=== PATIENT | female | born 1930 | race Caucasian/White ===

== ENCOUNTER 2016-12-03 10:44 | Emergency (ER) | payer OTHER, MEDICARE ==
[~2016-12-03] VITALS: Ht 163.8 cm; Wt 72.6 kg
[~2016-12-03 10:44] MED LIST: ALDACTONE 25 MG25 MG PO; ATORVASTATIN CA20 M1 PO; ATORVASTATIN CA20 MG PO; BRILINTA90 MG PO; CHILDREN'S ASPI81 M1 PO; CLONAZEPAM0.5 M2 PO; DEXILANT60 MG PO; DULCOLAX5 M1 PO; HEPARIN 2525000 UNI1 IV; HYOSCYAMINE0.125 MG PO; LINZESS145 MC1 PO; MELATONIN3 M4 PO; METOPROLOL SUCC50 M2 PO; MIRALAX17 GM PO; MYRBETRIQ25 M1 PO; NEXIUM40 M1 PO; NITROGLYCERIN0.4 MG SL; VITAB121000; VITAMIN D1000 IU PO; VITAMIN D31000 UNI2 PO
--- NOTE | 2016-12-03 10:49 | ED UPPER/LOWER EXTREMITY COMPL ---
History of Present Illness General Chief Complaint: Hip Injury Stated Complaint: BIBA L HIP PAIN Source: patient Exam Limitations: no limitations Vital Signs & Intake/Output Vital Signs & Intake/Output Vital Signs Date Time Temp Pulse Resp B/P Pulse O2 O2 Flow FiO2 Ox Delivery Rate 12/03 1455 97.1 79 18 135/71 96 12/03 1045 97.1 71 18 140/63 96 Allergies Coded Allergies: onion (Mild, MILD GI UPSET 12/03/16) codeine (Intermediate, NAUSEA 12/03/16) Reconcile Medications Aspirin (Children's Aspirin) 81 MG TAB HEART HEALTH (Reported) Atorvastatin Calcium 20 MG TABLET 1 TAB PO DAILY CHOLESTEROL (Reported) Bisacodyl (Dulcolax) 5 MG ECT 1 TAB PO DAILY PRN CONSTIPATION (Reported) Cholecalciferol (Vitamin D3) 1,000 IU TAB 1 TAB PO DAILY BLOOD HEALTH ( Reported) Clonazepam 0.5 MG TABLET 0.5 TAB PO BID ANXIETY (Reported) Esomeprazole (Nexium) 40 MG CAPSULE.DR 1 CAP PO DAILY GERD (Reported) Hyoscyamine Sulfate 0.125 MG TAB 1 TAB PO Q4H PRN CRAMPING (Reported) Linaclotide (Linzess) 145 MCG CAP 1 CAP PO DAILY GI (Reported) Metoprolol Succinate (Metoprolol Succinate XL) [address] TAB PO DAILY HEART (Reported) Mirabegron (Myrbetriq) [address] TAB PO BID BLADDER (Reported) Naproxen 375 MG TABLET 1 TAB PO BID PRN PAIN with food Nitroglycerin 0.4 MG TAB 1 TAB SL AD PRN ANGINA (Reported) Triage Nurses Notes Reviewed? yes Onset: Gradual Duration: constant Timing: single episode today Severity: moderate Severity Numbers: 5 Method of Injury: direct blow, fall HPI: PT IS A 85-year-old female with a past medical history of hypertension, hyperlipidemia, coronary artery disease status post stent placement in August 2015 who presents to emergency room stating that yesterday patient was in her normal state of health and was sitting in a recliner patient stood up and began walking in her living room where she misstepped and fell striking the left lateral aspect of her body to the grounds and the recliner. Patient denies any preceding episode of lightheaded sensation or dizziness. Patient denies losing consciousness. Patient lives in assisted care living facility in which [facility] had called EMS which EMS arrived on scene and patient was advised to ambulate with her walker as she does every day use this where she walked without pain and had steady gait. Patient then declined EMS services patient woke up at 3 AM last night and needed to use the restroom and which during this ambulation episode with a walker she noted Pain to her left hip down her leg. Patient states that she was able to tolerate ambulation and slept again in the recliner and today she still complained of the same pain to left hip and down the leg. (ELLI GRANADO) Past History Medical History Any Pertinent Medical History? see below for history Neurological: NONE EENT: hearing loss, BILATERAL HEARING AIDS Cardiovascular: angina, hypertension, hyperlipidemia, NSTEMI, CARDIAC STENTS Respiratory: NONE Gastrointestinal: constipation, GERD, irritable bowel syndrome Hepatic: NONE Renal: urinary incontinence Musculoskeletal: sciatica, ARTHRITIS COMPRESSION FRACTURES LEFT HIP ORIF Psychiatric: anxiety Endocrine: NONE Blood Disorders: B12 DEFICIENCY Cancer(s): NONE SENIOR STRATEGY MANAGER/Reproductive: Incontinence History of MRSA: No History of VRE: No History of CDIFF: No Surgical History Surgical History: cholecystectomy, ptca, aug [address] [facility] Psychosocial History Who do you live with Spouse What is your primary language Maltese Family History Family History, If Any: MOTHER maternal aunt FH: breast cancer Relation not specified for: FH: HTN (hypertension) Hx Contributory? No (ELLI GRANADO) Review of Systems Review of Systems Constitutional: Reports: see HPI, malaise, weakness. EENTM: Reports: no symptoms. Respiratory: Reports: no symptoms. Cardiovascular: Reports: no symptoms. Gastrointestinal/Abdominal: Reports: no symptoms. Genitourinary: Reports: no symptoms. Musculoskeletal: Reports: see HPI, joint pain, muscle pain. Skin: Reports: no symptoms. Neurological/Psychological: Reports: no symptoms. Hematologic/Endocrine: Reports: no symptoms. Immunological: Reports: no symptoms. All Other Systems: Reviewed and Negative (ELLI GRANADO) Physical Exam Physical Exam General Appearance: no apparent distress, alert, comfortable Neurologic/Tendon: normal sensation, normal motor functions, normal tendon functions, responds to pain, no evidence tendon injury, no pulse deficit Comments: Well-developed well-nourished person in no acute distress HEENT: Normal EENT exam, extraocular motion intact, no nystagmus. Pupils equally round and reactive to light and accommodation. Nose is atraumatic. External auditory canal and Tympanic membranes clear. Pharynx normal. No swelling or edema. Neck: Supple, no lymphadenopathy, normal range of motion without pain or tenderness Full active range of motion noted, no central spinous tenderness noted Back: Generalized low back point tenderness noted, normal inspection Cardiovascular: Regular rate and rhythms no murmurs rubs or gallops, normal JVP Respiratory: Chest nontender. No respiratory distress.breath sounds clear to auscultation bilaterally Abdomen: Soft, nontender nondistended, no appreciable organomegaly. Normal bowel sounds. No ascites Extremity: No edema, no calf tenderness to palpation, normal and equal pulses. Left hip generalized point tenderness noted decreased active range motion noted with pain to hip flexion Left knee joint was point tenderness noted, full active range of motion noted with flexion extension Left ankle talus point tenderness noted full active range of motion noted with plantar flexion dorsiflexion Left lower extremity dermatomes intact pedal pulse +2 Neuro: Alert oriented x3, motor sensory normal, cranial nerves II through XII grossly intact. Skin: No appreciable rash on exposed skin, skin is warm and dry. Psych: Mood and affect is normal, memory and judgment is normal. (JONATHAN DUNHAM,ELLI) Progress Differential Diagnosis: arterial insufficiency, compartment syndrome, contusion, dislocation, DVT, fracture, gout, septic arthritis, sprain, tendon injury, PNEUMOTHORAX, RIB FRACTURE, MYOCARDIAL INFARCTION, CARDIAC CONTUSION, SPLEEN LACERATION, PANCREATITIS, APPENDICITIS, aaa, AORTIC DISSECTION, pe Plan of Care: Orders Procedure Date/time Status CT PELVIS WO IV CONTRAST 12/[address] LUMB SPINE WO IV CONTRAST 12/03 1246 Active Patient currently is in no apparent distress. Patient will be image to wear patient's symptoms of pain are on exam. Patient was initially given Naprosyn Patient had no concerns of abdominal pain on exam\ CT scan was unremarkable for acute fracture or hardware is in place Patient was then evaluated on ambulation she had normal steady gait with mild pain noted by patient to the left lower extremity however gait was stable with a walker Case management evaluated patient will provide home physical therapy to patient' s house. Discussed patient with Dr. HAWK who agrees with disposition plan Patient was strongly advised to follow up with primary care doctor and orthopedic doctor if symptoms still continue in 2 days and she will comply. I strongly advised patient to continue using her walker and she will comply for fall prevention (ELLI GRANADO) Diagnostic Imaging: Viewed by Me: CT Scan. Radiology Impression: no acute abnormality, no fracture Initial ED EKG: SINUS RHYTHM NOTED AT 102 BPM WITH VENTRICULAR BIGEMINY NOTED Comments: PATIENT: Sabas DWYER PRESENT AGE: 85 PATIENT ACCOUNT NO: [id number] : 29 LOCATION: [facility] ORDERING PHYSICIAN: ELLI DUNHAM SERVICE DATE: 12/03/16 EXAM TYPE: CAT - CT PELVIS WO IV CONTRAST EXAMINATION: CT PELVIS WITHOUT CONTRAST CLINICAL INFORMATION: Left hip and leg pain status post fall. COMPARISON: None. TECHNIQUE: Helical scanning was performed with submillimeter collimation through the pelvis. Sagittal and coronal multiplanar 2-D reconstructions were obtained. DLP: 913 mGy-cm. FINDINGS: There is diffuse osteopenia of the included osseous structures with postoperative changes in the left hip consistent with previous total hip arthroplasty with moderate hypertrophic heterotopic bone formation involving the intertrochanteric region greatest superiorly. There is diffuse joint space narrowing in the right hip with large marginal osteophytes identified. There are moderate degenerative changes at the lumbosacral junction, please see separately dictated CT lumbar spine for further information. Soft tissue imaging through the pelvis demonstrates extensive distal left and sigmoid colon diverticulosis without evidence of acute diverticulitis. The uterus and adnexa are unremarkable in appearance. There is no intraperitoneal free fluid. No suspicious masses are seen. IMPRESSION: 1. Osteopenia, no acute fractures are seen. 2. Degenerative changes right hip and lumbosacral junction. 3. Postoperative changes left hip. 4. Colonic diverticulosis. PATIENT: Sabas DWYER PRESENT AGE: 85 PATIENT ACCOUNT NO: [id number] : 29 LOCATION: ER ORDERING PHYSICIAN: ELLI DUNHAM SERVICE DATE: 12/03/16 EXAM TYPE: CAT - CT LOWER EXT WO IV CONTRAST EXAMINATION: CT LOWER EXTREMITY WITHOUT CONTRAST, LEFT CLINICAL INFORMATION: Left lower extremity pain after a fall. COMPARISON: None TECHNIQUE: A noncontrast CT of the left leg with sagittal and coronal reformats. DLP: 4853 mGy-cm FINDINGS: There is a left total hip arthroplasty. The components are in the usual position and alignment without evidence of loosening or fracture. There is heterotopic ossification along the greater trochanter which comes to within 5 mm of bone formation along the lateral acetabulum. There is no fracture of the left femur, the left tibia, or left fibula. There is tricompartmental osteoarthritis of the left knee with medial compartment joint space narrowing. Faint meniscal chondrocalcinosis. No joint effusion. Flattening along the peripheral weightbearing aspect of the lateral femoral condyle appears chronic, possibly a remote injury or degenerative remodeling. No acute fracture line. Mild subcutaneous edema at the lower leg distally, with no focal fluid collection or hematoma. IMPRESSION: No acute fracture. The left total hip arthroplasty components are in standard position and alignment without evidence of loosening. There is prominent heterotopic ossification of the greater trochanter approximating bone formation along the lateral acetabular rim. (ELLI GRANADO) Departure Departure Disposition: HOME OR SELF CARE Condition: Stable Clinical Impression Primary Impression: Left leg pain Secondary Impressions: Fall, Low back pain Referrals: BRENDON VIEIRA,ABDIRASHID ESCOBAR MD,ADÁN Lua (PCP/Family) Additional Instructions: As discussed begin the prescription Naprosyn for pain and inflammation. Continue using your walker for fall prevention at all times. Follow-up with your primary care doctor in 2 days for recheck of symptoms. And follow-up with orthopedic DR. OLIVAS for further evaluation and treatment if no better in 2 days for prescription NAPROXEN is waiting at your pharmacy If symptoms worsen return to the emergency room Departure Forms: Customer Survey General Discharge Information Prescriptions: Current Visit Scripts Naproxen 1 TAB PO BID PRN PAIN #14 TAB with food (ELLI GRANADO) PA/SUPERVISOR RECEIVING AND PROCESSING Co-Sign Statement Statement: ED Attending supervision documentation- [X] I saw and evaluated the patient. I have also reviewed all the pertinent lab results and diagnostic results. I agree with the findings and the plan of care as documented in the PA's/SUPERVISOR RECEIVING AND PROCESSING's documentation. [] I have reviewed the ED Record and agree with the PA's/SUPERVISOR RECEIVING AND PROCESSING's documentation. [] Additions or exceptions (if any) to the PAs/SUPERVISOR RECEIVING AND PROCESSING's note and plan are summarized below: [] (ANGI HAWK DO
--- NOTE | 2016-12-03 14:12 | CT SCAN REPORT ---
EXAMINATION: CT LUMBAR SPINE WITHOUT CONTRAST CLINICAL INFORMATION: Fall with left hip, leg, and lumbosacral pain. COMPARISON: Lumbar spine MRI 10/19/2014. TECHNIQUE: Helical non-contrast CT images were obtained through the lumbar spine and 1.25 and 2.5 mm axial reconstructions were reviewed along with sagittal and coronal MPRs. FINDINGS: Stable appearing severe biconcave compression deformity at L4 status post vertebral body augmentation at this level. The remaining vertebral body heights are maintained. No acute fractures and no acute subluxations are identified within the lumbar spine. There is mild disc volume loss and vacuum phenomenon within the L5-S1 disc. Remaining disc volumes are preserved. Prominent anterior bridging osteophytes at the T12 through the L5 levels suggesting diffuse idiopathic skeletal hyperostosis. Imaged bony sacrum appears intact. The abdominal aorta is tortuous and ectatic. There is extensive aortoiliac atherosclerotic calcification. Sigmoid diverticulosis. At L1-L2 there is a small posterior central disc osteophyte protrusion without appreciable central canal stenosis nor significant foraminal stenosis. At L2-L3 there is a diffuse annular disc bulge that is imparted disc osteophyte complex and there is mild bilateral facet arthropathy. There is no appreciable central canal stenosis nor significant foraminal stenosis. At L3-L4 there is L3 superior endplate retropulsion and a large diffuse annular disc bulge that is in part a disc osteophyte complex and there is moderate bilateral hypertrophic facet arthropathy and ligamentum flavum thickening. Suspect moderate to severe central canal stenosis and moderate bilateral foraminal stenosis at this level. At L4-L5 there is a diffuse annular disc bulge and there is moderate bilateral hypertrophic facet arthropathy and ligamentum flavum thickening. Bilateral subarticular zone stenosis and probable moderate central canal stenosis. Moderate to severe bilateral foraminal stenosis. At L5-S1 there is a diffuse annular disc bulge and there is severe bilateral facet arthropathy and ligamentum flavum thickening. Suspect moderate to severe central canal stenosis and moderate bilateral foraminal stenosis. 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 No acute fractures are identified within the lumbar spine. Multilevel degenerative disc disease and facet arthropathy throughout the lumbar spine with multilevel central canal and foraminal stenosis that appears similar to the prior study.
--- NOTE | 2016-12-03 14:18 | CT SCAN REPORT ---
EXAMINATION: CT PELVIS WITHOUT CONTRAST CLINICAL INFORMATION: Left hip and leg pain status post fall. COMPARISON: None. TECHNIQUE: Helical scanning was performed with submillimeter collimation through the pelvis. Sagittal and coronal multiplanar 2-D reconstructions were obtained. DLP: 913 mGy-cm. FINDINGS: There is diffuse osteopenia of the included osseous structures with postoperative changes in the left hip consistent with previous total hip arthroplasty with moderate hypertrophic heterotopic bone formation involving the intertrochanteric region greatest superiorly. There is diffuse joint space narrowing in the right hip with large marginal osteophytes identified. There are moderate degenerative changes at the lumbosacral junction, please see separately dictated CT lumbar spine for further information. Soft tissue imaging through the pelvis demonstrates extensive distal left and sigmoid colon diverticulosis without evidence of acute diverticulitis. The uterus and adnexa are unremarkable in appearance. There is no intraperitoneal free fluid. No suspicious masses are seen. IMPRESSION: 1. Osteopenia, no acute fractures are seen. 2. Degenerative changes right hip and lumbosacral junction. 3. Postoperative changes left hip. 4. Colonic diverticulosis.
--- NOTE | 2016-12-03 14:20 | CT SCAN REPORT ---
EXAMINATION: CT LOWER EXTREMITY WITHOUT CONTRAST, LEFT CLINICAL INFORMATION: Left lower extremity pain after a fall. COMPARISON: None TECHNIQUE: A noncontrast CT of the left leg with sagittal and coronal reformats. DLP: 4853 mGy-cm FINDINGS: There is a left total hip arthroplasty. The components are in the usual position and alignment without evidence of loosening or fracture. There is heterotopic ossification along the greater trochanter which comes to within 5 mm of bone formation along the lateral acetabulum. There is no fracture of the left femur, the left tibia, or left fibula. There is tricompartmental osteoarthritis of the left knee with medial compartment joint space narrowing. Faint meniscal chondrocalcinosis. No joint effusion. Flattening along the peripheral weightbearing aspect of the lateral femoral condyle appears chronic, possibly a remote injury or degenerative remodeling. No acute fracture line. Mild subcutaneous edema at the lower leg distally, with no focal fluid collection or hematoma. IMPRESSION: No acute fracture. The left total hip arthroplasty components are in standard position and alignment without evidence of loosening. There is prominent heterotopic ossification of the greater trochanter approximating bone formation along the lateral acetabular rim.
[2016-12-03 14:55] VITALS: BP 135/71
[2016-12-03] MEDS ORDERED: NAPROXEN375 M2 PO (15:09)
== END 2016-12-03 17:02 ==
LOC: ERH 10:44
DX: M54.5 Low back pain (principal); M79.605 Pain in left leg

== ENCOUNTER 2017-01-14 11:07 | Emergency (ER) | payer OTHER, MEDICARE ==
[~2017-01-14] VITALS: Ht 162.6 cm; Wt 72.6 kg
[~2017-01-14 11:07] MED LIST changes: +NAPROXEN375 M2 PO
--- NOTE | 2017-01-14 11:32 | ED GENERAL ADULT ---
History of Present Illness General Chief Complaint: General Adult Stated Complaint: BIBA FOR "ALL OVER PAIN" Source: patient, old records Exam Limitations: poor historian Vital Signs & Intake/Output Vital Signs & Intake/Output Vital Signs Date Time Temp Pulse Resp B/P Pulse O2 O2 Flow FiO2 Ox Delivery Rate 01/14 1721 97.0 70 18 125/78 97 Room Air Room Air 01/14 1411 97.2 75 18 128/80 98 Room Air Room Air 01/14 1111 96.1 74 16 127/79 96 Room Air Allergies Coded Allergies: onion (Mild, MILD GI UPSET 12/03/16) codeine (Intermediate, NAUSEA 12/03/16) Reconcile Medications Aspirin (Children's Aspirin) 81 MG TAB.CHEW 1 TAB PO DAILY HEART HEALTH ( Reported) Atorvastatin Calcium 20 MG TABLET 1 TAB PO DAILY CHOLESTEROL (Reported) Bisacodyl (Dulcolax) 5 MG TABLET.DR 1 TAB PO DAILY CONSTIPATION (Reported) Cholecalciferol (Vitamin D3) 1,000 UNIT TABLET 1 TAB PO DAILY SUPPLEMENT ( Reported) Clonazepam 0.5 MG TABLET 0.5 TAB PO DAILY ANXIETY (Reported) Clonazepam 0.5 MG TABLET 1 TAB PO QPM ANXIETY (Reported) Cyanocobalamin (Vitamin B-12) (Unknown Strength) TABLET (Unknown Dose) PO DAILY SUPPLEMENT (Reported) Esomeprazole (Nexium) 40 MG CAPSULE.DR 1 CAP PO DAILY GERD (Reported) Linaclotide (Linzess) 145 MCG CAPSULE 1 CAP PO DAILY GI (Reported) Metoprolol Succinate 50 MG TAB.ER.24H 1 TAB PO DAILY HEART (Reported) Mirabegron (Myrbetriq) 25 MG TAB.ER.24H 1 TAB PO BID BLADDER (Reported) Prednisone 5 MG TABLET 1 TAB PO DAILY STEROID (Reported) Triage Note: 86 Y/O FEMALE BIBA (TO TRIAGE) FOR EVAL OF PAIN "ALL OVER: MY SHOULDERS, MY BACK, MY ARMS, ITS EVERYWHERE". PT STATES SHE HAD A FALL LAST MONTH BUT HAD A NEGATIVE CT SCAN. WAS DOING OKAY UNTIL THIS WEEKEND WHEN THIS PAIN BEGAN AND HAS BEEN "ACHY" SINCE. ALSO REPORTS DECREASED APPETITE SINCE LAST WEEK. AFEBRILE. STATES SHE ALWAYS HAS URINARY INCONTINENCE BUT HAS NOTICED INCREASE IN URINATION WELL RECENTLY Triage Nurses Notes Reviewed? yes HPI: Patient is an 86-year-old female presents complaining of body aches, abdominal discomfort, back pain, chest pain. Patient reports that she fell approximately 5 weeks ago onto her left side. Patient was evaluated in the emergency department and reports that she had CT scans that showed no fractures. A couple of days later she developed sciatica first on her left side than on her right side. Patient's primary doctor placed her on prednisone with no improvement. Last week patient was evaluated at [facility] for abdominal pain, had a CT scan which was unremarkable and discharged home to her assisted living facility. Patient reports that she continues with diffuse dull abdominal pain. For the past 3 days patient has been having dull pain in her bilateral upper extremities and her back. Arm pain is currently 0 out of 10, worsens with movement. Patient attributes developing the back and arm pain from leaning over her walker due to her low back pain. Currently patient has bilateral rib pain in the lateral rib cage on both sides. Pain worsens with deep breath. Pain is currently moderate, no exacerbating or alleviating factors. Patient has been taking Tylenol and her prednisone taper with no improvement. This morning at approximately 4 AM patient developed midsternal dull pain. Pain is currently 0 out of 10. Patient reports that the pain was nonradiating, no exacerbating or alleviating factors. Chronic bilateral lower extremity edema. (RUTH DELGADO) Past History Travel History Traveled to [place] past 21 day No Medical History Any Pertinent Medical History? see below for history Neurological: vertigo EENT: hearing loss, BILATERAL HEARING AIDS Cardiovascular: angina, hypertension, hyperlipidemia, NSTEMI, CARDIAC STENTS DEPENDENT EDEMA Respiratory: NONE Gastrointestinal: constipation, GERD, irritable bowel syndrome Hepatic: NONE Renal: urinary incontinence Musculoskeletal: osteoarthritis, osteoporosis, sciatica, spinal stenosis, ARTHRITIS COMPRESSION FRACTURES LEFT HIP ORIF Psychiatric: anxiety Endocrine: NONE Blood Disorders: B12 DEFICIENCY Cancer(s): NONE PRIVATE CHEF/Reproductive: Incontinence History of MRSA: No History of VRE: No History of CDIFF: No Surgical History Surgical History: cholecystectomy, ptca, aug 2015 at [facility] Psychosocial History Who do you live with Spouse What is your primary language [place] Tobacco Use: Never used Family History Family History, If Any: MOTHER maternal aunt FH: breast cancer Relation not specified for: FH: HTN (hypertension) Hx Contributory? No (RUTH DELGADO) Review of Systems Review of Systems Constitutional: Denies: chills, fever. EENTM: Reports: no symptoms. Respiratory: Denies: cough, orthopnea, short of breath. Cardiovascular: Reports: chest pain. Denies: peripheral edema, syncope. GI: Reports: see HPI, abdominal pain. Denies: nausea, vomiting. Genitourinary: Reports: frequency. Musculoskeletal: Reports: see HPI, back pain. Skin: Reports: no symptoms. Neurological/Psychological: Denies: headache, numbness, paresthesia. Hematologic/Endocrine: Denies: bruising, bleeding. Immunologic/Allergic: Denies: splenectomy. (RUTH DELGADO) Physical Exam Physical Exam General Appearance: alert, awake Head: atraumatic, normal appearance Eyes: Bilateral: normal appearance, PERRL, EOMI. Ears, Nose, Throat: normal pharynx, normal ENT inspection, hearing grossly normal Neck: normal inspection, supple, full range of motion Respiratory: normal breath sounds, chest non-tender, no respiratory distress, lungs clear Cardiovascular: regular rate/rhythm, normal peripheral pulses Peripheral Pulses: 2+ dorsalis pedis (R), 2+ dorsalis pedis (L) Gastrointestinal: normal bowel sounds, soft, non-tender Back: normal inspection, normal range of motion, no vertebral tenderness Extremities: normal inspection, normal capillary refill, normal range of motion, no edema Neurologic/Psych: awake, alert, oriented x 3 Skin: intact, normal color, warm/dry Lymphatic: no anterior cervical jackelyn Core Measures ACS in differential dx? Yes ASA ordered for poss ACS? No-ACS ruled out CVA/TIA Diagnosis: No Severe Sepsis Present: No Septic Shock Present: No (RUTH DELGADO) Progress Differential Diagnoses I considered the following diagnoses in my evaluation of the patient: Acute coronary syndrome, arthritis, muscle strain, aortic dissection, urinary tract infection, pneumonia Plan of Care: Orders Procedure Date/time Status Heart Healthy Diet 01/14 L Active TROPONIN LEVEL 01/14 1600 Complete EKG 01/14 1600 Active URINALYSIS 01/14 1141 Complete TROPONIN LEVEL 01/14 1141 Complete LIPASE 01/14 1141 Complete COMPREHENSIVE METABOLIC PANEL 01/14 1141 Complete CBC WITHOUT DIFFERENTIAL 01/14 1141 Complete EKG 01/14 1141 Active Laboratory Tests 01/14/17 1625: Troponin I < 0.01 01/14/17 1315: Urine Color YEL, Urine Clarity CLEAR, Urine pH 7.5, Ur Specific [place] 1.015, Urine Protein NEG, Urine Ketones NEG, Urine Nitrite NEG, Urine Bilirubin NEG, Urine Urobilinogen 1.0, Ur Leukocyte Esterase NEG, Ur Microscopic EXAM NOT REQUIRED, Urine Hemoglobin NEG, Urine Glucose NEG 01/14/17 1236: Anion Gap 8, Estimated GFR > 60, BUN/Creatinine Ratio 24.0, Glucose 111 H, Calcium 8.8, Total Bilirubin 0.6, AST 15, ALT 26, Alkaline Phosphatase 209 H, Troponin I < 0.01, Total Protein 6.7, Albumin 3.8, Globulin 2.9, Albumin/ Globulin Ratio 1.3, Lipase 166, CBC w Diff MAN DIFF ORDERED, RBC 3.97 L, MCV 95.1, MCH 32.5 H, RDW 13.5, MPV 6.6 L, Gran % 89.8 H, Lymphocytes % 6.5 L, Monocytes % 3.6, Eosinophils % 0.1, Basophils % 0 L, Absolute Granulocytes 6.9 H, Absolute Lymphocytes 0.5 L, Absolute Monocytes 0.3, Absolute Eosinophils 0, Absolute Basophils 0, Platelet Estimate VERIFIED BY SMEAR, Normocytic RBCs VERIFIED, Normochromic RBCs VERIFIED, PUBS MCHC 34.[address] chest aorta 2 years ago that showed normal caliber thoracic aorta. 01/14/2017 12:15:58 PM: Discussed with and seen by Dr. Hawk, suspects cervical radiculopathy, obtain 2 sets of EKG and troponin to rule out acute coronary syndrome. 01/14/2017 1:12:38 PM: Patient resting comfortably, assisted to the commode and back. Continues with lateral dull pain to the ribs bilaterally. 01/14/2017 5:27:20 PM: Results of labs and imaging discussed with patient. Repeat EKG and troponin unchanged from initial. Patient appears stable for discharge back to assisted living facility and to follow-up with her primary care doctor. (LILLY DUNHAM,RUTH) Diagnostic Imaging: Viewed by Me: Radiology Read. Discussed w/RAD: Radiology Read. Radiology Impression: PATIENT: JANNETH DWYER PRESENT AGE : 86 PATIENT ACCOUNT NO: [id number] : 29 LOCATION: [facility] ORDERING PHYSICIAN: RUTH DUNHAM SERVICE DATE: 01/14/17 EXAM TYPE: RAD - XRY-PORTABLE CHEST XRAY EXAMINATION: XR PORTABLE CHEST CLINICAL INFORMATION: Chest pain, bilateral rib pain. COMPARISON: 08/08/2016. TECHNIQUE: Portable AP view of the chest was obtained. FINDINGS: Cardiomediastinal silhouette appears unchanged with mild tortuosity of the descending thoracic aorta. The lungs and pleural spaces appear clear. There is no evidence of pneumothorax or pulmonary edema. Included osseous structures demonstrate osteopenia without focal osseous lesions or evidence of fracture on the portable view provided. IMPRESSION: Unremarkable exam. DICTATED BY: KARY BOYCE MD DATE/TIME DICTATED:01/14/171316 FIELD ENGINEER:OHLLEY DATE/TIME TRANSCRIBED:01/14/171316 CONFIDENTIAL, DO NOT COPY WITHOUT APPROPRIATE AUTHORIZATION. <Electronically signed in Other Vendor System> SIGNED BY: KARY BOYCE MD 01/14/17 1322 Initial ED EKG: normal sinus rhythm 73 bpm normal axis, normal intervals, no acute ST/T-wave changes compared to previous EKG Prior EKG: unchanged Rhythm Strip: normal sinus rhythm (RUTH DELGADO) Departure Departure Time of Disposition: 1726 Disposition: HOME OR SELF CARE Condition: Stable Clinical Impression Primary Impression: Chest pain Qualifiers: Chest pain type: unspecified Qualified Code: R07.9 - Chest pain, unspecified Secondary Impressions: Chronic hyponatremia, Musculoskeletal pain Referrals: SHAWN VIEIRA,ADÁN Lua (PCP/Family) Additional Instructions: Take Tylenol as directed. Continue the prednisone taper that your primary doctor prescribed you. Follow-up with your primary doctor this week for further evaluation. Departure Forms: Customer Survey General Discharge Information (RUTH DELGADO) PA/CHIMNEY REPAIRER Co-Sign Statement Statement: ED Attending supervision documentation- [x] I saw and evaluated the patient. I have also reviewed all the pertinent lab results and diagnostic results. I agree with the findings and the plan of care as documented in the PA's/CHIMNEY REPAIRER's documentation. [] I have reviewed the ED Record and agree with the PA's/CHIMNEY REPAIRER's documentation. [] Additions or exceptions (if any) to the PAs/CHIMNEY REPAIRER's note and plan are summarized below: [] (ANGI HAWK DO) Critical Care Note Critical Care Note Critical Care Time: non-applicable (RUTH DELGADO)
[2017-01-14] MEDS ORDERED: CLONAZEPAM0.5 M2 PO (11:46)
[2017-01-14] MEDS ORDERED: PREDNISONE5 M1 PO (11:49)
[2017-01-14] MEDS ORDERED: VITAMIN B-121000 MC3 PO (11:50)
[2017-01-14 12:52] LABS: ABSOLUTE BASOPHIL COUNT 0 /CUMM (0.0-0.2); ABSOLUTE EOSINOPHIL COUNT 0 /CUMM (0.0-0.7); ABSOLUTE GRANULOCYTE CT 6.9 /CUMM (1.4-6.5); ABSOLUTE LYMPH COUNT 0.5 /CUMM (1.2-3.4); ABSOLUTE MONOCYTE COUNT 0.3 /CUMM (0.10-0.60); BASOPHIL % 0 % (0.0-2.0); EOSINOPHIL % 0.1 % (0-5); GRANULOCYTE % 89.8 % (42.2-75.2); HEMATOCRIT 37.7 % (37-47); MEAN CORPUSCULAR HGB 32.5 PG (27.0-31.0); MEAN CORPUSCULAR HGB CONC 34.2 G/DL (33.0-37.0); MEAN CORPUSCULAR VOLUME 95.1 FL (81.0-99.0); MEAN PLATELET VOLUME 6.6 FL (7.4-10.4); PLATELET COUNT 255 /CUMM (130-400); RBC DISTRIBUTION WIDTH 13.5 % (11.5-14.5); RED BLOOD CELL CT 3.97 /CUMM (4.20-5.40); WHITE BLOOD CELL COUNT 7.7 /CUMM (4.8-10.8)
--- NOTE | 2017-01-14 13:22 | RADIOLOGY REPORT ---
EXAMINATION: XR PORTABLE CHEST CLINICAL INFORMATION: Chest pain, bilateral rib pain. COMPARISON: 08/08/2016. TECHNIQUE: Portable AP view of the chest was obtained. FINDINGS: Cardiomediastinal silhouette appears unchanged with mild tortuosity of the descending thoracic aorta. The lungs and pleural spaces appear clear. There is no evidence of pneumothorax or pulmonary edema. Included osseous structures demonstrate osteopenia without focal osseous lesions or evidence of fracture on the portable view provided. IMPRESSION: Unremarkable exam.
[2017-01-14 17:21] VITALS: BP 125/78
== END 2017-01-14 19:54 ==
LOC: ERH 11:07
PROVIDERS: Physician Assistant
DX: R07.9 Chest pain, unspecified (principal); E87.1 Hypo-osmolality and hyponatremia; T14.8 Other injury of unspecified body region; W19.XXXA Unspecified fall, initial encounter
CPT/HCPCS: 81003; 93005; 93010